=== PATIENT | female | born 1990 | race Caucasian/White ===

== ENCOUNTER 2018-06-22 19:55 | Emergency (ER) | payer SELFPAY ==
[~2018-06-22] VITALS: Ht 165.1 cm; Wt 117.0 kg
[2018-06-22] MEDS ORDERED: IV NORMAL SALINE 1,000ML 1,000 ML IV ONE (20:15)
[2018-06-22] MEDS ORDERED: KETOROLAC 15 MG/ML VIAL. IV ONE (20:30)
--- NOTE | 2018-06-22 21:46 | PHYS DOC ---
Past History Past Medical History: No Pertinent History Past Surgical History: Tonsillectomy, Other Additional Past Surgical Histo: Left Salpingoophorectomy Additional Smoking Information: One to two cigurates. Alcohol Use: Rarely Drug Use: None Adult General Chief Complaint Chief Complaint: ABDOMINAL PAIN HPI HPI Patient is a 27 year old female with a history of ectopic who presents with abdominal pain. She states for the past four days she has had intermittent cramps. These cramps were not brought on by anything in particular but war relieved by urination. Additionally, thirty minutes before arrival to emergency department patient felt a pop when she was urinating followed by sharp lower abdominal pain. Patient denies any constipation, diarrhea, hematochezia, or hematuria. She is unsure of her LMP as she is x 4 months. Hx of left oophorectomy due to benign growth on left ovary. Review of Systems Review of Systems Constitutional: Denies fever or chills Eyes: Denies redness, or eye pain HENT: Denies nasal congestion or sore throat Respiratory: Denies cough or shortness of breath Cardiovascular: Denies chest pain or palpitations GI: Denies abdominal pain, nausea, vomiting, or diarrhea : Denies dysuria or hematuria Musculoskeletal: Denies back pain or joint pain Integument: Denies rash or skin lesions Neurologic: Denies headache, focal weakness or sensory changes Complete systems were reviewed and found to be within normal limits, except as documented in this note. Current Medications Current Medications Current Medications Medications (Trade) Dose Ordered Sig/Yuan Start Time Stop Time Status Last Admin Dose Admin Ketorolac Tromethamine (Toradol 15mg Vial) 15 mg 1X ONCE 06/22/18 20:30 06/22/18 20:31 UNV 06/22/18 20:54 15 MG Sodium Chloride 1,000 ml @ 1,000 mls/hr 1X ONCE 06/22/18 20:15 06/22/18 21:14 DC 06/22/18 20:54 1,000 MLS/HR Allergies Allergies Allergies Coded Allergies Type Severity Reaction Last Updated Verified No Known Drug Allergies 06/22/18 No Physical Exam Physical Exam Constitutional: No acute distress, non-toxic appearance. HENT: Normocephalic, atraumatic, oropharynx moist. Eyes: Conjunctiva normal, no discharge. Neck: Normal range of motion, no tenderness, supple Cardiovascular: Heart rate regular rhythm, no murmur Lungs & Thorax: Bilateral breath sounds clear to auscultation Abdomen: Soft, lower abdominal/pelvic tenderness right > left Skin: Warm, dry, no erythema Back: No tenderness, no CVA tenderness. Extremities: No tenderness, ROM intact, no edema. Neurologic: Alert and oriented X 3, normal motor function, no focal deficits noted. Psychologic: Affect normal, mood normal. Current Patient Data Vital Signs Vital Signs Date Time Temp Pulse Resp B/P (MAP) Pulse Ox O2 Delivery O2 Flow Rate FiO2 06/22/18 20:30 98.2 102 18 98 Room Air 06/22/18 20:15 153/100 (117) EKG EKG [] Radiology/Procedures Radiology/Procedures PROCEDURE: CT ABDOMEN PELVIS WO CONTRAST INDICATION: RLQ pain x 4 days, painful urination prior to arrival in ER COMPARISON: None. TECHNIQUE: Axial CT images obtained through the abdomen and pelvis without contrast. Limited assessment of solid organ structures and vasculature secondary to lack of intravenous contrast. One or more of the following individualized dose reduction techniques were utilized for this examination: 1. Automated exposure control; 2. Adjustment of the mA and/or kV according to patient size; 3. Use of iterative reconstruction technique. FINDINGS: Abdominal aorta is not aneurysmal. No intrahepatic bile duct dilation. Gallbladder is contracted. Small fat-containing umbilical hernia. No peripancreatic fluid collection. Spleen mildly prominent. No left-sided hydronephrosis. Urinary bladder has minimal urine within it at time of exam. No right-sided hydronephrosis. Free fluid is seen within the pelvis which is more than typically seen. A portion of it appears higher than simple density. The appendix is partially seen and measures up to approximately 5 to 6 mm. Within the left gluteal region there is a fat-containing structure measuring up to about 3 cm. Could be secondary to lipoma. No dilated loops of bowel to suggest obstruction. There is some prominent lymph nodes in the right side of the abdomen including adjacent to the right-sided colon measuring up to approximately a centimeter short axis. IMPRESSION: 1. Free fluid is seen within the pelvis which is more than typically seen and a portion of it appears high density which could be secondary to blood. The definitive source is not seen however could be helpful to obtain a pelvic ultrasound to further evaluate and assess whether there is an ovarian lesion. 2. The appendix is partially seen proximally and is near the upper limits of normal in size. Electronically signed by: Dereck Trejo MD (06/22/2018 10:59 PM) [facility] DICTATED AND SIGNED BY: DERECK TREJO MD PROCEDURE: TRANSVAGINAL INDICATION: ABNORMAL CT, RT ADNEXAL PAIN, PT FELT A POP THIS EVENING INCREASE PAIN, PRESSURE COMPARISON: CT earlier same day TECHNIQUE: Grayscale and color ultrasound images uterus and adnexa. Transabdominal and transvaginal images obtained. FINDINGS: Uterus: 86 x 44 x 39 mm. Endometrial Stripe: 10 mm. Vascular flow is seen to right adnexal structure which could be secondary to ovarian tissue. Left ovary has been removed. Moderate free fluid within the pelvis which is more than typically seen. Hypoechoic structure arising from or abutting right ovary measuring approximately 2 cm. Cystic lesion at right adnexa measuring 24 x 16 mm. There is adjacent hypoechoic tissue which could be secondary to right ovarian tissue however a solid component of a right adnexal lesion is not excluded. IMPRESSION: 1. Moderate free fluid is seen and more than typically seen. One possible cause would include fluid or blood related to a partially ruptured right adnexal lesion but the source is not definitive on this exam. 2. At the right adnexa there is a cystic lesion identified with an adjacent hypoechoic component. This could be secondary to a partially cystic right ovarian mass with causes such as hemorrhagic cyst or endometrioma within the differential but the patient will need a follow-up examination to ensure this decreases in severity to exclude a higher grade right ovarian lesion. Per report the patient has a negative hCG therefore ectopic would be unlikely.. Electronically signed by: Dereck Trejo MD (06/23/2018 12:27 AM) [facility] DICTATED AND SIGNED BY: DERECK TREJO MD Course & Med Decision Making Course & Med Decision Making 27 year old female presented to emergency department for lower abdominal/pelvic pain. Patient has a history of ectopic and is unsure of her LMP. Labs and imaging were obtained and posted to chart. HCG negative. UA with concern for infectious process. Empiric antibiotics given. CT demonstrated free fluid in pelvis. Discussed with radiologist who recommends US evaluation. Follow up US demonstrated cystic lesion identified with an adjacent hypoechoic component. No torsion. Symptomatic treatment provided with interval improvement. Patient stable for discharge with outpatient follow-up with PCP/[facility]. A copy of US and CT results provided to patient to give to PCP/[facility] for further evaluation and treatment. Discussed findings and plan with patient and family, who acknowledge understanding and agreement. [] Dragon Disclaimer Dragon Disclaimer This electronic medical record was generated, in whole or in part, using a voice recognition dictation system. Departure Departure: Impression: Primary Impression: Pelvic pain Additional Impressions: Ovarian cystic mass Urinary tract infection Disposition: HOME, SELF-CARE Condition: STABLE Referrals: NAOMI KWAN (PCP) Patient Instructions: Ovarian Cyst, [id number], Urinary Tract Infection, Easy -to-Read Scripts Cephalexin (KEFLEX) 500 Mg Capsule 1 CAP PO TID for UTI, #21 CAP Prov: JUAN MANUEL BAEZ DO 06/23/18 Hydrocodone Bit/Acetaminophen (NORCO 5-325 TABLET) 1 Each Tablet 0.5 TAB PO Q6HRS PRN for PAIN, #8 TAB Prov: JUAN MANUEL BAEZ DO 06/23/18 Problem Qualifiers Additional Impressions: Ovarian cystic mass Laterality: right Qualified Codes: N83.201 - Unspecified ovarian cyst, right side Urinary tract infection Urinary tract infection type: acute cystitis Hematuria presence: without hematuria Qualified Codes: N30.00 - Acute cystitis without hematuria JUAN MANUEL BAEZ DO Jun 22, 2018 21:46
[2018-06-22 21:52] LABS: BASO % 0 % (0-3); EOS # 0.1 x10^3/uL (0.0-0.7); EOS % 1 % (0-3); HEMATOCRIT 38.7 % (36.0-47.0); HEMOGLOBIN 12.6 g/dL (12.0-15.5); LYMPH # 2.3 x10^3/uL (1.0-4.8); LYMPH % 19 % (24-48); MEAN CORPUSCULAR HEMOGLOBIN 26 pg (25-35); MEAN CORPUSCULAR HGB CONC 33 g/dL (31-37); MEAN CORPUSCULAR VOLUME 80 fL (79-100); MONO # 0.7 x10^3/uL (0.0-1.1); MONO % 6 % (0-9); NEUT # 9.1 x10^3uL (1.8-7.7); NEUT % 74 % (31-73); PLATELET COUNT 361 x10^3/uL (140-400); RED BLOOD COUNT 4.85 x10^6/uL (3.50-5.40); RED CELL DISTRIBUTION WIDTH 15.4 % (11.5-14.5); WHITE BLOOD COUNT 12.3 x10^3/uL (4.0-11.0)
[2018-06-22 22:01] LABS: BACTERIA,URINE FEW /HPF (0-FEW); BILIRUBIN,URINE NEG (NEG); CLARITY,URINE HAZY; COLOR,URINE YELLOW; GLUCOSE,URINE NEG (NEG); NITRITE,URINE NEG (NEG); RBC,URINE 0 /HPF (0-2); UROBILINOGEN,URINE 0.2 mg/dL (0.2 mg/dL); WBC,URINE 20-40 /HPF (0-4)
[2018-06-22 22:02] LABS: SQUAMOUS EPITHELIAL CELL,UR OCC /LPF
[2018-06-22 22:08] LABS: ALBUMIN 3.6 g/dL (3.4-5.0); ALBUMIN/GLOBULIN RATIO 0.8 (1.0-1.7); CALCIUM 9.1 mg/dL (8.5-10.1); GFR 66.5; MAGNESIUM 2.2 mg/dL (1.8-2.4); POTASSIUM 3.6 mmol/L (3.5-5.1); TOTAL BILIRUBIN 0.2 mg/dL (0.2-1.0); TOTAL PROTEIN 8.4 g/dL (6.4-8.2)
[2018-06-22] MEDS ORDERED: cefTRIAXone SODIUM 1 GM VIAL ONE (22:25)
[2018-06-22] MEDS ORDERED: IV NORMAL SALINE 50ML 50 ML ONE (22:26)
--- NOTE | 2018-06-22 23:02 | RAD ---
INDICATION: RLQ pain x 4 days, painful urination prior to arrival in ER COMPARISON: None. TECHNIQUE: Axial CT images obtained through the abdomen and pelvis without contrast. Limited assessment of solid organ structures and vasculature secondary to lack of intravenous contrast. One or more of the following individualized dose reduction techniques were utilized for this examination: 1. Automated exposure control; 2. Adjustment of the mA and/or kV according to patient size; 3. Use of iterative reconstruction technique. FINDINGS: Abdominal aorta is not aneurysmal. No intrahepatic bile duct dilation. Gallbladder is contracted. Small fat-containing umbilical hernia. No peripancreatic fluid collection. Spleen mildly prominent. No left-sided hydronephrosis. Urinary bladder has minimal urine within it at time of exam. No right-sided hydronephrosis. Free fluid is seen within the pelvis which is more than typically seen. A portion of it appears higher than simple density. The appendix is partially seen and measures up to approximately 5 to 6 mm. Within the left gluteal region there is a fat-containing structure measuring up to about 3 cm. Could be secondary to lipoma. No dilated loops of bowel to suggest obstruction. There is some prominent lymph nodes in the right side of the abdomen including adjacent to the right-sided colon measuring up to approximately a centimeter short axis. IMPRESSION: 1. Free fluid is seen within the pelvis which is more than typically seen and a portion of it appears high density which could be secondary to blood. The definitive source is not seen however could be helpful to obtain a pelvic ultrasound to further evaluate and assess whether there is an ovarian lesion. 2. The appendix is partially seen proximally and is near the upper limits of normal in size. Electronically signed by: Toby Trejo MD (06/22/2018 10:59 PM) [facility]
--- NOTE | 2018-06-23 00:30 | RAD ---
INDICATION: ABNORMAL CT, RT ADNEXAL PAIN, PT FELT A POP THIS EVENING INCREASE PAIN, PRESSURE COMPARISON: CT earlier same day TECHNIQUE: Grayscale and color ultrasound images uterus and adnexa. Transabdominal and transvaginal images obtained. FINDINGS: Uterus: 86 x 44 x 39 mm. Endometrial Stripe: 10 mm. Vascular flow is seen to right adnexal structure which could be secondary to ovarian tissue. Left ovary has been removed. Moderate free fluid within the pelvis which is more than typically seen. Hypoechoic structure arising from or abutting right ovary measuring approximately 2 cm. Cystic lesion at right adnexa measuring 24 x 16 mm. There is adjacent hypoechoic tissue which could be secondary to right ovarian tissue however a solid component of a right adnexal lesion is not excluded. IMPRESSION: 1. Moderate free fluid is seen and more than typically seen. One possible cause would include fluid or blood related to a partially ruptured right adnexal lesion but the source is not definitive on this exam. 2. At the right adnexa there is a cystic lesion identified with an adjacent hypoechoic component. This could be secondary to a partially cystic right ovarian mass with causes such as hemorrhagic cyst or endometrioma within the differential but the patient will need a follow-up examination to ensure this decreases in severity to exclude a higher grade right ovarian lesion. Per report the patient has a negative hCG therefore ectopic would be unlikely.. Electronically signed by: Toby Trejo MD (06/23/2018 12:27 AM) [facility]
[2018-06-23] MEDS ORDERED: HYDR-3165 PO (00:50)
[2018-06-23] MEDS ORDERED: CEPH-264 PO (00:58)
[2018-06-23 01:05] VITALS: BP 128/73
== END 2018-06-23 01:08 | disposition home or self-care (01) ==
LOC: ER 19:55
DX: N30.00 Acute cystitis without hematuria (principal); N83.201 Unspecified ovarian cyst, right side; F17.210 Nicotine dependence, cigarettes, uncomplicated
CPT/HCPCS: 36415; 74176; 76830; 80053; 81001; 81025; 83690; 83735; 85025; 87086; 96365; 96375; 99284; J0696; J1885; J7030